=== PATIENT | female | born 1975 | race Asian ===

== ENCOUNTER 2024-05-08 23:45 | Emergency (ER) | payer SELFPAY ==
[~2024-05-08] VITALS: Ht 162.6 cm; Wt 72.6 kg
[2024-05-09 02:22] VITALS: BP 133/91; TEMP 98.5; O2SAT 98
== END 2024-05-09 02:22 | disposition home or self-care (01) ==
LOC: ER 23:55
DX: F10.129 Alcohol abuse with intoxication, unspecified (principal); Y90.0 Blood alcohol level of less than 20 mg/100 ml